=== PATIENT | male | born 1990 | race Caucasian/White ===

== ENCOUNTER 2024-06-29 23:31 | Emergency (ER) | payer BC ==
[~2024-06-29 23:31] MED LIST: SODIUM CHLORIDE 0.9% 1,000 ML BAG ONE
[2024-06-30] MEDS ORDERED: ONDANSETRON 4 MG/2 ML VIAL ONE (00:33)
[2024-06-30] MEDS ORDERED: KETOROLAC 15 MG/ML 1 ML VIAL ONE (00:33)
[2024-06-30] MEDS ORDERED: AMOXIC-POT CLAV 875-125MG 1 EACH TAB ONE (02:59)
== END 2024-06-30 03:16 | disposition home or self-care (01) ==
LOC: EC 23:31
CPT/HCPCS: 74177; 99284